=== PATIENT | female | born 1950 | race African-American/Black ===

== ENCOUNTER 2020-05-15 08:40 | Emergency (ER) | payer MEDICARE ==
[~2020-05-15] VITALS: Ht 157.5 cm; Wt 71.7 kg
[2020-05-15] MEDS ORDERED: IBUPROFEN 400400 M1 PO (09:47)
[2020-05-15 09:49] VITALS: BP 137/68
== END 2020-05-15 09:49 | disposition home or self-care (01) ==
LOC: ER 08:40
DX: M54.5 Low back pain (principal); R11.0 Nausea; I10 Essential (primary) hypertension; E78.5 Hyperlipidemia, unspecified; M19.90 Unspecified osteoarthritis, unspecified site; Z98.890 Other specified postprocedural states; Z88.5 Allergy status to narcotic agent; V89.2XXA Person injured in unspecified motor-vehicle accident, traffic, initial encounter; Y93.I9 Activity, other involving external motion; Y92.488 Other paved roadways as the place of occurrence of the external cause; Y99.8 Other external cause status